=== PATIENT | female | born 1995 | race African-American/Black ===

== ENCOUNTER 2021-05-12 22:23 | Emergency (ER) | payer OTHER | END 2021-05-13 00:15 | disposition home or self-care (01) | LOC: CSHERS 22:23 | DX: H65.92 Unspecified nonsuppurative otitis media, left ear (principal); H60.92 Unspecified otitis externa, left ear | CPT/HCPCS: 99282 ==

== ENCOUNTER 2022-12-02 12:54 | Outpatient (CLI) | payer MEDICAID, OTHER | END 2022-12-02 12:55 | disposition home or self-care (01) | LOC: CSHULT 12:54 | PROVIDERS: ATTEND Nurse Practitioner Women's Health | DX: R10.2 Pelvic and perineal pain (principal); N83.202 Unspecified ovarian cyst, left side | CPT/HCPCS: 76856 ==